=== PATIENT | female | born 1950 | race Caucasian/White ===

== ENCOUNTER 2018-09-20 07:32 | Inpatient (IN) ==
[2018-09-16 11:28] LABS: Appearance,Urine CLEAR; Bilirubin,Urine NEG (NEG); Color,Urine YELLOW; Glucose,Urine (UA) NEGATIVE (NEG); Leukocyte Esterase,Urine NEG /uL (NEG); Protein,Urine NEG (NEG); Specific Gravity,Urine 1.016 (1.000-1.035); Urine Blood NEG mg/dL (<0.03); Urobilinogen,Urine NEG (NEG)
[2018-09-16 11:30] LABS: Basophils # (Auto) 0 K/mcL (0.0-0.3); Basophils % (Auto) 0.5 % (0.0-2.0); Eosinophils # (Auto) 0.2 K/mcL (0.0-0.7); Eosinophils % (Auto) 2.4 % (0.0-7.0); Granulocytes % (Auto) 63.1 % (38.0-78.0); Lymphocytes # (Auto) 1.8 K/mcL (1.5-4.8); Mean Cell Volume 94.4 fL (80.0-100.0); Mean Corpuscular HGB Conc 33.3 g/dL (31.0-36.0); Monocytes # (Auto) 0.5 K/mcL (0.1-0.9); Platelet Count 327 K/mcL (140-440); RBC 4.59 M/mcL (4.00-5.20); Red Cell Distribution Width 13.4 % (11.5-14.5)
[2018-09-16 11:46] LABS: Blood Urea Nitrogen 16 mg/dl (8-23)
[~2018-09-20 07:32] MED LIST: 0.9 % SODIUM CHLORIDE 9 ML, KETOROLAC 30 MG, ROPIVACAINE HCL/PF 49.5 ML, EPINEPHrine 0.... IJ SCH; ACETAMINOPHEN 500 MG TABLET PO SCH; PREGABALIN 75 MG CAPSULE PO SCH; ceFAZolin 1 GM VIAL IV SCH
[2018-09-20] MEDS ORDERED: SCOPOLAMINE 1 PATCH PATCH TOPICAL ONE (10:00)
[2018-09-20] MEDS ORDERED: IPRATROPIUM/ALBUTEROL 3 ML AMPUL.NEB NEB ONE (10:38)
[2018-09-20] MEDS ORDERED: PROPOFOL 200 MG/20 ML VIAL IV ONE (10:50)
[2018-09-20] MEDS ORDERED: fentaNYL 100 MCG/2 ML VIAL IV ONE (10:50)
[2018-09-20] MEDS ORDERED: DEXAMETHASONE 10 MG/ML VIAL IV ONE (10:50)
[2018-09-20] MEDS ORDERED: ROPIVACAINE HCL/PF 20 ML VIAL IJ ONE (10:50)
[2018-09-20] MEDS ORDERED: MIDAZOLAM 5 MG/5 ML VIAL IV ONE (10:50)
[2018-09-20] MEDS ORDERED: LIDOCAINE HCL/PF 100 MG/5 ML SYRINGE IV ONE (10:50)
[2018-09-20] MEDS ORDERED: ONDANSETRON 4 MG/2 ML VIAL IV ONE (10:50)
[2018-09-20] MEDS ORDERED: GENTAMICIN SULFATE 800 MG/20 ML VIAL IR ONE (11:30)
[2018-09-20] MEDS ORDERED: METOPROLOL TARTRATE 5 MG/5 ML VIAL IV PRN (12:15)
[2018-09-20] MEDS ORDERED: METHOCARBAMOL 1,000 MG/10 ML VIAL IV PRN (12:15)
[2018-09-20] MEDS ORDERED: ATROPINE SULFATE 0.4 MG/ML VIAL IV PRN (12:15)
[2018-09-20] MEDS ORDERED: MEPERIDINE 25 MG/ML SYRINGE IV PRN (12:15)
[2018-09-20] MEDS ORDERED: ePHEDrine 50 MG/ML AMPUL IV PRN (12:15)
[2018-09-20] MEDS ORDERED: IPRATROPIUM/ALBUTEROL 3 ML AMPUL.NEB NEB PRN (12:15)
[2018-09-20] MEDS ORDERED: ONDANSETRON 4 MG/2 ML VIAL IV PRN ×2 (12:15→12:52)
[2018-09-20] MEDS ORDERED: FLUMAZENIL 0.1 MG/ML ML IV PRN (12:15)
[2018-09-20] MEDS ORDERED: fentaNYL 100 MCG/2 ML VIAL IV PRN (12:15)
[2018-09-20] MEDS ORDERED: diphenhydrAMINE 50 MG/ML VIAL IV PRN (12:15)
[2018-09-20] MEDS ORDERED: HYDROmorphone 2 MG/ML VIAL IV PRN ×2 (12:15→12:52)
[2018-09-20] MEDS ORDERED: NALOXONE HCL 0.4 MG/ML VIAL IV PRN (12:15)
[2018-09-20] MEDS ORDERED: LACTATED RINGERS 1,000 ML IV SCH (12:15)
[2018-09-20] MEDS ORDERED: MAGNESIUM HYDROXIDE 30 ML ORAL.SUSP PO PRN (12:52)
[2018-09-20] MEDS ORDERED: ACETAMINOPHEN 325 MG TABLET PO PRN (12:52)
[2018-09-20] MEDS ORDERED: TEMAZEPAM 15 MG CAPSULE PO PRN (12:52)
[2018-09-20] MEDS ORDERED: FLEETS ADULT ENEMA PR PRN (12:52)
[2018-09-20] MEDS ORDERED: BENZOCAINE/MENTHOL 1 LOZENGE PO PRN (12:52)
[2018-09-20] MEDS ORDERED: TRANEXAMIC ACID 1,000 MG/10 ML VIAL IV ONE (12:52)
[2018-09-20] MEDS ORDERED: POLYETHYLENE GLYCOL 3350 17 GM PACKET PO PRN (12:52)
[2018-09-20] MEDS ORDERED: BISACODYL 10 MG SUPP.RECT PR PRN (12:52)
--- NOTE | 2018-09-20 12:52 | Brief Operative Note ---
Date of procedure: 09/20/18 Pre-op diagnosis: left knee djd Post-op diagnosis: same Procedure: left tka with neha robot Grafts/Implants: Yes Anesthesia: GETA Surgeon: Paul Coleman Grader Tender: Roberto Scott Estimated blood loss (cc): 50 Tourniquet Time (Minutes): 65 Specimens Removed/Pathology: none sent Condition: stable Disposition: PACU
[2018-09-20] MEDS ORDERED: ACYCLOVIR 400 MG TABLET PO PRN (12:54)
--- NOTE | 2018-09-20 13:26 | XRay Report ---
CLINICAL INFORMATION: Post-Op Total Knee COMPARISON: None. FINDINGS: Total knee prostheses is anatomically aligned. No osseous abnormality. Periarticular gas and soft tissue swelling seen at the expected i IMPRESSION: Negative Interpreted and Authenticated by: Romain Haile 09/20/18
[2018-09-20] MEDS: 0.45 % SODIUM CHLORIDE 1,000 ML IV SCH (13:56)
[2018-09-20] MEDS: HYDROcodone/APAP 10/325MG TABLET PO PRN ×3 (14:06→19:38)
[2018-09-20] MEDS: 0.9 % SODIUM CHLORIDE 10 ML SYRINGE IV SCH ×2 (14:08→21:01)
--- NOTE | 2018-09-20 15:39 | Operative Note ---
DATE OF OPERATION: 09/20/2018 PREOPERATIVE DIAGNOSES: 1. Left knee degenerative arthritis with instability and ACL rupture. 2. Retained hardware from an ACL reconstruction. POSTOPERATIVE DIAGNOSIS: Left knee degenerative arthritis with instability and ACL rupture. PROCEDURE: Left total knee replacement using the [employer] robot, cemented components, and hardware removal. SURGEON: Paul Coleman MD TRAVEL COTA: Roberto Scott PA-C. ANESTHESIA: General LMA anesthesia. Preop antibiotics and tranexamic acid had been given prior to the case. TOTAL TOURNIQUET TIME: Approximately 65 minutes. IMPLANTS PLACED: Per nurse's note. I believe it is a size 4 femur and size 5 tibial baseplate with an 11 mm poly insert and a 32 mm patellar button. DESCRIPTION OF PROCEDURE: The patient was brought to the operating room and put to sleep with general LMA anesthesia. Once asleep, the patient had the left leg sterilely prepped and draped in the usual sterile fashion. After a timeout had been performed, we confirmed the operative site. We then made a midline incision, mid vastus approach was performed. The pins above and below the knee were placed with arrays. These arrays registered the center of hip rotation, medial and lateral malleoli. Intraarticular pins were placed as well as 30 points were registered on the femur and the tibia. Once these registrations were done, we then balanced the knee, both at 90 degrees and 15 degrees. We irrigated thoroughly and then brought in the robot. The robot made the bony cuts and these bony cuts were removed. We then removed any osteophytes as well and spurs posteriorly. It was identified that she had two debbie that were interfering with implant position. These two debbie were removed on the tibial side. These debbie were then removed using a staple puller and osteotomes. We had no complication with any deformity of the bone and they came out nicely. We were able then punch into place the tibial baseplate as well as the femoral side. We were able to trial the components. They fit very nicely, better with an 11 poly instead of the 9. The 11 was better because we could elevate the medial collateral ligament and stretch it to balance the knee perfectly in both flexion and extension. The ACL, since it had been chronically deficient, she had stretched out her posterior lateral corner. To help us balance this, we used the thicker poly and a dished insert. We irrigated thoroughly and then cemented into place the tibial baseplate and femoral component. Excess cement was removed. A deep dish poly liner 11 mm in thickness was placed. We prepared the patella measuring 24 mm. This was cut to 14 mm and then we placed a 32 mm patellar button, which was cemented into place which covered the patella perfectly. We irrigated, kept the knee at 45 degrees until cement was dry. Any excess cement was removed. We thoroughly irrigated the knee and then did our post-inject formula around the knee and inside the capsule. We then closed the mid vastus approach with #1 Stratafix x2 stitches. #1 Stratafix was used in the deep fatty layer and then adhesive closure was placed on the skin. Sterile bandage was applied. Tourniquet time 65 minutes. COMPLICATIONS: None. RBH:rey Job ID: [id number] Doc ID: [id number] Paul Coleman MD
[2018-09-20] MEDS: KETOROLAC 15 MG/ML VIAL IV SCH (17:38)
[2018-09-20] MEDS: ceFAZolin 1 GM VIAL IV SCH (19:38)
[2018-09-20] MEDS ORDERED: SENNOSIDES 1 TABLET PO SCH (21:00)
[2018-09-20] MEDS: FAMOTIDINE 20 MG TABLET PO SCH (21:01)
[2018-09-20] MEDS: ASPIRIN 325 MG ENTERIC COATED TABLET PO SCH (21:01)
[2018-09-20] MEDS: DOCUSATE SODIUM 100 MG CAPSULE PO SCH (21:01)
[2018-09-20] MEDS: SALMETEROL XINAFOATE 50 MCG INH SCH (21:03)
[2018-09-20] MEDS: FLUTICASONE HFA 110MCG INHALER INH SCH (21:03)
[2018-09-21] MEDS: KETOROLAC 15 MG/ML VIAL IV SCH ×3 (00:04→11:54)
[2018-09-21] MEDS: 0.45 % SODIUM CHLORIDE 1,000 ML IV SCH ×2 (00:08→09:55)
[2018-09-21] MEDS: ceFAZolin 1 GM VIAL IV SCH (03:34)
[2018-09-21] MEDS: HYDROcodone/APAP 10/325MG TABLET PO PRN ×3 (03:34→12:04)
[2018-09-21] MEDS: 0.9 % SODIUM CHLORIDE 10 ML SYRINGE IV SCH (05:40)
[2018-09-21] MEDS ORDERED: THYROID, PORK 60 MG TABLET PO SCH (07:30)
--- NOTE | 2018-09-21 07:33 | Orthopedic Progress Note ---
Subjective Patient information: Note initiated : 09/21/18 at 7:32 am Service Date, if different from initiated Date: [] Patient: Yuliya Dietrich a 68 y/o F admitted on 09/20/18 for Left Robotic Total Knee Arthroplasty with. Chief Complaint: [Pt is stable this morning on post operative day 1 without any significant concerns or complaints. Patients vital signs have remained stable. Patients dressing is dry and is grossly intact from a neurovas cular and motor standpoint. Patients 10 point ROS is otherwise negative. ] Objective Vital signs: Vital Signs Temp Pulse Resp BP BP Pulse Ox 09/21/18 07:24 98 09/21/18 03:48 92 09/21/18 03:47 97.7 F 68 18 116/62 92 09/21/18 00:10 97.4 F 82 16 112/59 94 09/20/18 19:46 95 09/20/18 19:42 97.4 F 73 16 108/62 95 09/20/18 15:52 65 123/73 98 09/20/18 15:22 64 117/68 99 09/20/18 14:52 68 114/71 97 09/20/18 14:38 62 114/74 98 09/20/18 14:22 55 L 137/73 98 09/20/18 14:07 60 123/75 97 09/20/18 13:52 53 L 107/64 96 09/20/18 13:39 97.2 F 60 22 117/65 97 09/20/18 13:30 97.1 F 54 L 10 L 118/66 97 09/20/18 13:15 97.3 F 61 13 115/51 96 09/20/18 13:10 64 14 114/58 96 09/20/18 13:05 68 14 114/58 99 09/20/18 13:00 97.1 F 67 10 L 115/58 97 09/20/18 12:52 95 09/20/18 08:00 96.6 F L 60 16 140/82 98 Intake and Output 09/20/18 09/21/18 09/21/18 21:59 05:59 13:59 Intake Total 600 / 3700 1400 / 3700 Output Total 1200 / 1751 501 / 1751 Balance - / 1949 89 / 194 Intake: IV 1000 / 1000 Sodium Chloride 0.45% 1,000 ml 1000 / 1000 @ 100 mls/hr IV .Q10H JUANA Rx#: [id number] Oral 600 / 1000 400 / 1000 Output: Urine Catheter Amount 900 / 900 Void Amount 300 / 800 500 / 800 # of times incontinent of urine 1 / Other: Meal Dinner Percent of Meal Consumed 100% Feeding Ability Independent Urine Appearance Clear # Voids 1 Weight 215 lb Intake & Output: Intake & Output 09/20/18 09/21/18 09/21/18 21:59 05:59 13:59 Intake Total 600 / 3700 1400 / 3700 Output Total 1200 / 1751 501 / 1751 Balance -600 / 1949 899 / 1949 Weight 215 lb Intake: IV 1000 / 1000 Sodium Chloride 0.45% 1,000 ml 1000 / 1000 @ 100 mls/hr IV .Q10H JUANA Rx#: [id number] Oral 600 / 1000 400 / 1000 Output: Urine Catheter Amount 900 / 900 Void Amount 300 / 800 500 / 800 # of times incontinent of urine 1 / Other: Meal Dinner Percent of Meal Consumed 100% Feeding Ability Independent Urine Appearance Clear # Voids 1 Incision: Yes healing Incision clean and dry: Yes Dressing: Yes clean Neurological exam IM: Yes motor sensory intact, Yes neurovascular intact Extremities exam IM: Yes Foot pink and warm, Yes neurovascular intact - Labs CBC & BMP: 09/21/18 04:30 09/16/18 09:14 Labs: 09/21/18 09/16/18 04:30 09:14 Hgb 14.5 Hct 35.5 L 43.4 Assessment and Plan (1) Hx of total knee arthroplasty The patient has been educated regarding dressing care, Physical Therapy recommendations, home exercises, restrictions, and follow up appointments. The patient has had all necessary DME prescribed. The patient has remained relatively stable during their hospital course. Leave Dermabond patch intact until followup Status: Acute
[2018-09-21] MEDS: DOCUSATE SODIUM 100 MG CAPSULE PO SCH (07:36)
--- NOTE | 2018-09-21 07:36 | Discharge Summary ---
Ortho Discharge - TKA - Patient Instructions Diet: Regular Diet Activity: activity as tolerated, weight bearing as tolerated Total Knee Protocol: For Total Knee: Start ROM LETICIA with stationary bike or rocking chair. Work on gaining full extension of knee. Posterior dislocation precautions provided. Hip abductor strengthening and gait training instructions provided. Apply Cryocuff as instructed. Dressing Care: May shower in 2 days Patient Education: Total Knee Replacement (DC) Additional Instructions: CPM for home use. - Problem Maintenance (1) Hx of total knee arthroplasty Status: Acute - Follow Up Plan Follow Up Appointments: Roberto Scott PA-C [Physician Cascade Operator] - 10/05/18 1:40 pm Disposition: Home, Self-Care Prognosis: Good Rehab Potential: Good I certify that the patient requires SNF services: No Overall status at discharge: patient is progressing back to baseline - Orders For Discharge Prescriptions: Aspirin [Ecotrin] 325 mg PO BID #60 tab.ec Docusate Sodium [Colace] 100 mg PO BID #60 capsule HYDROcodone/APAP 10/325MG [[place] 10-325Mg] 1 - 2 tab PO Q4HP PRN #75 tablet PRN Reason: Pain Level 3-6
[2018-09-21] MEDS: FAMOTIDINE 20 MG TABLET PO SCH (07:37)
[2018-09-21] MEDS: ASPIRIN 325 MG ENTERIC COATED TABLET PO SCH (07:37)
[2018-09-21] MEDS: FLUTICASONE HFA 110MCG INHALER INH SCH (07:38)
[2018-09-21] MEDS: SALMETEROL XINAFOATE 50 MCG INH SCH (07:39)
[2018-09-21] MEDS ORDERED: FERROUS SULFATE 325 MG TABLET PO SCH (08:00)
[2018-09-21] MEDS ORDERED: BETAINE HCL 300 MG PO SCH (09:00)
[2018-09-21] MEDS ORDERED: LYSINE 1000 MG PO SCH (09:00)
[2018-09-21] MEDS ORDERED: LORATADINE 10 MG TABLET PO SCH (09:00)
[2018-09-21] MEDS ORDERED: ASCORBIC ACID 500 MG TABLET PO SCH (09:00)
[2018-09-21] MEDS ORDERED: VIT A,C & E/LUTEIN/MINERALS TABLET PO SCH (09:00)
[2018-09-21] MEDS ORDERED: VITAMIN D3 1,000 UNIT TABLET PO SCH (09:00)
[2018-09-21] MEDS ORDERED: VITAMIN E (DL,TOCOPHERYL ACET) 400 UNIT CAPSULE PO SCH (09:00)
== END 2018-09-21 12:40 | disposition home or self-care (01) | DRG 470 ==
LOC: MEDSUR 07:32
PROVIDERS: ADMIT Orthopaedic Surgery; ATTEND Orthopaedic Surgery